=== PATIENT | female | born 1930 | race Caucasian/White ===

== ENCOUNTER 2016-09-14 08:52 | Observation (INO) | payer OTHER ==
[~2016-09-14] VITALS: Ht 157.5 cm; Wt 82.1 kg
--- NOTE | ~2016-09-14 | D ---
[facility] [place] [address] [place] [address] DISCHARGE SUMMARY Name: TAM DAVID Room #: 202-P [facility] Dianne Cali#: [id number] Admission: 09/14/16 Attend Phys: Kenneth Marks MD Discharge: 09/15/16 Date of : 32 Report #: [id number] THIS REPORT FOR: //name// CC: Vinita Marks DISCHARGE DIAGNOSES: 1. 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 PROCEDURES PERFORMED: Upgrade from a pacemaker to a Bi-V ICD. The patient is an 85-year-old female with a nonischemic cardiomyopathy, likely due to both chemotherapy-induced cardiomyopathy and due to chronic right ventricular pacing. She also has permanent atrial fibrillation. She was here for upgrade to a Bi-V ICD. The procedure went smoothly with a successful implantation of both leads. HOSPITAL COURSE: She was monitored overnight, received IV antibiotics, monitored on telemetry, everything was okay. She had a device interrogation that was within normal limits. A chest x-ray was performed and it will be finalized. She denies any chest pain, shortness of breath, PND, or orthopnea. Her physical exam was normal with normal cardiac exam, normal incision and no edema. As such, she was deemed stable for discharge home. She has a followup visit with me on 09/27/2016. She will continue her home medications and resume her warfarin today. <ELECTRONICALLY SIGNED> By: Kneneth Marks MD 09/18/16 0852 0907 1215 Kenneth Marks MD /nt
--- NOTE | ~2016-09-14 | P ---
[facility] [place] [address] [place] [address] PROCEDURE REPORT Name: TAM DAVID Room #: 202-P [facility] M.R.#: [id number] Admission: 09/14/16 Attend Phys: Kenneth Marks MD Discharge: 09/15/16 Date of : 32 Report #: [id number] THIS REPORT FOR: //name// CC: Vinita Marks PREOPERATIVE DIAGNOSIS: Nonischemic cardiomyopathy. POSTOPERATIVE DIAGNOSIS: Nonischemic cardiomyopathy. 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 As such, she is here for upgrade to Bi-V ICD from a dual chamber pacemaker. Her breast cancer has been an admission for years and she has a life expectancy of greater than 1 year. ANESTHESIA: The patient underwent MAC anesthesia with no anesthesia-related complications. DESCRIPTION OF PROCEDURE: The patient underwent informed consent. We discussed the details of the procedure including the risks, which include but not limited to bleeding, infection, vascular damage, cardiac perforation, pneumothorax. She understood these risks and is willing to proceed. As such, she was brought to the EP laboratory in a fasting and unsedated state and prepped and draped in a sterile fashion. She received IV Ancef prior to initiation of the procedure. Due to her prior pacemaker implantation, a formal venogram was performed to determine the patency of the left axillary vein. This showed that there was adequate flow. Next, I injected 15 mL of lidocaine at the prior incision site. An incision was made and the chronic pocket was opened. I then dissected out the leads and then performed a pocket revision to make room for the ICD. Next, I obtained access to the left axillary vein x 2. This was somewhat challenging, but eventually I was able to get my guidewires and I visualized this under fluoroscopy to be into the right atrium. Sheaths were positioned using the modified Seldinger technique. Next, a single coil ICD lead was placed into the right ventricular apex and it was deployed and there was no artifact from the prior pacemaker. In fact these leads appeared to be safe distance apart. This lead was sutured to the prepectoral fascia. Next, I placed a coronary sinus guide sheath into the right atrium and eventually got access to the coronary sinus. It had somewhat of a tortuous takeoff, but I was able to advance the sheath into the CS proper. Next, I performed a venogram of the coronary sinus and there was a nice large posterolateral branch. A quadripolar lead was easily delivered into this vessel and there were great pacing thresholds throughout. There was some mild phrenic nerve capture in some of the pacing configurations but the thresholds of the phrenic were much higher than the actual thresholds of RV capture. This sheath was split and the CS lead remained in place. I sutured [facility] [address] [place] [address] PROCEDURE REPORT Name: FRANKIETAM A Room #: 202-P LAINE Cali#: [id number] Admission: 09/14/16 Attend Phys: Kenneth Marks MD Discharge: 09/15/16 Date of : 32 Report #: [id number] the CS lead down. I then connected the atrial lead to the ICD in the LV and new RV lead to the ICD as well. The old pace sense lead was capped and placed in the pocket. The leads were tested and found to be functioning normally. Of note, the patient is in permanent atrial fibrillation. Next, I placed the leads and device in the pocket. The pocket was then irrigated with vancomycin solution and then the pocket was closed in 3 layers using 2-0 for the deep layer, 3-0 for the mid layer, 4-0 for the subcuticular layer and surgical glue was placed to the skin layer. The patient awoke neurologically and hemodynamically intact with no complications and no significant bleeding. The explanted pacemaker was a Medtronic model #Y1370RH, serial #[id number]. This was originally implanted on 12/16/2007. The preexisting leads were also implanted at that time. The new generator was a [employer] model # [id number], serial #[id number]. The chronic RA lead was a Medtronic lead, model #5076, [id number]. This lead was functioning normally, but as we are not using it I would not dictate the values. The chronic RV lead was a Medtronic model #5076, serial #[id number]. This lead was capped and placed in the pocket, had good R waves 19.4 millivolts, pacing impedance 628 ohms, pacing threshold is 0.5 volts at 0.5 milliseconds. This lead was functioning normally. The new ICD lead was a [employer] model #7122Q, 58 cm, serial #[id number]. This lead demonstrated an R-wave of 19.4 millivolts, pacing impedance of 628 ohms and a pacing threshold of 0.5 volts at 0.5 milliseconds. The LV lead was a [employer] model #1458Q, 86 cm, serial # [id number]. The LV lead was programmed in to the vector 4 mode, which is pacing from M2 to P4. The pacing impedance in this configuration was 640 ohms and the pacing threshold was 1 volt at 0.5 milliseconds. There was no phrenic nerve capture in this pacing configuration and this pacing vector was utilized as it had a nice basal pacing configuration and it resulted in narrowing of the QRS complex. The device was programmed to the VVIR 80-120 mode. The VT zone was set at 181 beats per minute with 3 rounds of bursts followed by 3 rounds of ramp followed by max output shocks. The VF zone was set at 222 beats per minute with ATP while charging followed by max output shocks. CONCLUSIONS: 1. Successful upgrade to a biventricular ICD. 2. Satisfactory right ventricular and left ventricular pacing thresholds. <ELECTRONICALLY SIGNED> By: Kenneth Marks MD 09/18/16 0852 1324 0103 Kenneth Marks MD /nt
[~2016-09-14 08:52] MED LIST: ACCUPRIL40 MG PO; AMLODIPINE BESYL5 MG PO; ASPIRIN EC81 M1 PO; ATENOLOL 50 MG50 M1 PO; COLESTID1 GM PO; CORTISPORIN CR7.5 G1 TOP; COUMADIN 2.5MG2.5 M1 PO; COUMADIN 5 MG TA5 M1 PO; DILTIAZEM 24HR240 M1 PO; HYDROCHLOROTHIA25 M2 PO; K-DUR 20 MEQ T20 MEQ PO; KLOR-CON PO; OMEPRAZOLE OR; PAROXETINE HCL10 MG PO; PREMARIN; PRILOSEC 20 MG20 MG PO; SOTALOL 120 MG120 MG PO; VITAMIN D-32000 UNIT PO
[2016-09-14] MEDS ORDERED: ROBITUSSIN100 MG/53 PO (09:17)
[2016-09-14] MEDS ORDERED: ALLERGY RELIEF180 MG PO (09:17)
[2016-09-14] MEDS ORDERED: AVAPRO300 MG PO (09:18)
[2016-09-14] MEDS ORDERED: IRON325 PO (09:18)
[2016-09-14] MEDS ORDERED: POTASSIUM20 PO (09:18)
[2016-09-14] MEDS ORDERED: CARVEDILOL25 MG PO (09:20)
[2016-09-14] MEDS ORDERED: XELODA500 MG PO (09:20)
[2016-09-14] MEDS ORDERED: LASIX 40 MG TAB40 M2 PO (09:21)
[2016-09-14] MEDS ORDERED: ZOFRAN ODT4 MG DISSOLVE (09:21)
[2016-09-14 09:29] VITALS: BP 123/56
[2016-09-14 09:37] LABS: ABSOLUTE NEUTROPHILS 5.8 thou/uL (1.4-8.2); BASOPHILS 0.5 % (0.0-2.0); EOSINOPHILS 1.7 % (0.0-3.0); HEMATOCRIT 37.5 % (37.0-47.0); HEMOGLOBIN 13.2 gm/dL (12.0-15.0); LYMPHOCYTES 11.4 % (24.0-44.0); MCH 40.1 pg (26.0-34.0); MCHC 35.1 g/dL (28.0-37.0); MCV 114.2 fL (80.0-100.0); PLATELET COUNT 139 thou/uL (150-400); POLYS 78.4 % (36.0-66.0); RBC 3.29 mil/uL (4.20-5.00); WBC 7.3 thou/uL (4.0-11.0)
[2016-09-14 09:38] LABS: MANUAL DIFF NO
[2016-09-14 09:49] LABS: APTT 24.5 Seconds (24.5-32.8); INR 1.3; PROTIME 13.4 Seconds (9.3-11.4)
[2016-09-14 09:53] LABS: CALCIUM 9.5 mg/dL (8.5-10.1); CREATININE 1.4 mg/dL (0.6-1.0); POTASSIUM 4.2 mmol/L (3.5-5.1)
[2016-09-14 09:57] LABS: ALBUMIN 3.7 g/dL (3.4-5.0); TOTAL BILIRUBIN 1.5 mg/dL (<0.1-1.0)
[2016-09-14 10:50] LABS: ANISOCYTOSIS 1+; MACROCYTES 2+; PLATELET ESTIMATE NORMAL
[2016-09-14 14:12] VITALS: BP 162/72
[2016-09-14 16:57] VITALS: BP 157/78
[2016-09-14 20:01] VITALS: BP 158/73
[2016-09-14 23:24] VITALS: BP 153/71
[2016-09-15 03:24] VITALS: BP 160/97
[2016-09-15 07:20] VITALS: BP 170/76
[2016-09-15 11:15] VITALS: BP 141/77
[2016-09-15 12:14] VITALS: BP 170/76
== END 2016-09-15 13:32 | disposition home or self-care (01) ==
LOC: CATH 08:52 → 2N 14:06
PROVIDERS: Internal Medicine Cardiovascular Disease
DX: I42.8 Other cardiomyopathies (principal); Z95.0 Presence of cardiac pacemaker; Z45.010 Encounter for checking and testing of cardiac pacemaker pulse generator [battery]

== ENCOUNTER 2017-11-12 17:24 | Inpatient (IN) | payer OTHER ==
[~2017-11-12] VITALS: Ht 157.5 cm; Wt 76.2 kg
--- NOTE | ~2017-11-12 | EKG ---
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: [facility] : 1930 Requested By: Rosalie Díaz Order Number: [id number] MD: Denny Chanel Measurements Intervals [place] Rate: 75 P: DC: QRS: 207 QRSD: 144 T: 53 QT: 460 QTc: 514 Interpretive Statements Afib/flutter and ventricular-paced rhythm No further analysis attempted due to paced rhythm Baseline wander in lead(s) V1 Compared to ECG 09/19/2012 08:41:40 Ventricular pacing is now present Electronically Signed On 11-13-2017 7:47:47 CDT by Denny Chanel [email or web address] <ELECTRONICALLY SIGNED> By: Denny Chanel MD, [facility] 11/13/17 0747 1826 1826 Denny Chanel MD, [facility] /EPI
[~2017-11-12 17:24] MED LIST changes: +ALLERGY RELIEF180 MG PO; +AVAPRO300 MG PO; +CARVEDILOL25 MG PO; +IRON325 PO; +LASIX 40 MG TAB40 M2 PO; +POTASSIUM20 PO; +ROBITUSSIN100 MG/53 PO; +XELODA500 MG PO; +ZOFRAN ODT4 MG DISSOLVE
[2017-11-12 17:43] VITALS: BP 150/79
[2017-11-12] MEDS ORDERED: HYDROCODONE-AP1 EAC6 PO (19:43)
[2017-11-12 20:59] LABS: HEMATOCRIT 38.8 % (37.0-47.0); HEMOGLOBIN 13.6 gm/dL (12.0-15.0); MCH 38.8 pg (26.0-34.0); MCV 110.9 fL (80.0-100.0); PLATELET COUNT 155 thou/uL (150-400); RDW 17.3 % (10.5-14.5); WBC 10.7 thou/uL (4.0-11.0)
[2017-11-12 21:07] LABS: ANION GAP 9 mmol/L (7-16); BUN 31 mg/dL (7-18); CALCIUM 9.1 mg/dL (8.5-10.1); CHLORIDE 103 mmol/L (98-107); CO2 28 mmol/L (21-32); CREATININE 1.5 mg/dL (0.6-1.0); GLUCOSE 128 mg/dL (74-106); POTASSIUM 3.9 mmol/L (3.5-5.1); SODIUM 140 mmol/L (136-145)
[2017-11-12 21:13] LABS: INR 2.6
[2017-11-12 21:15] LABS: ALBUMIN 3.5 g/dL (3.4-5.0); SGOT 45 U/L (15-37); SGPT 32 U/L (30-65); TROPONIN-I < 0.04 ng/mL (<0.06)
[2017-11-12 21:19] LABS: ABSOLUTE NEUTROPHILS 9.8 thou/uL (1.4-8.2)
[2017-11-12 21:20] LABS: ANISOCYTOSIS 1+; MACROCYTES 2+
[2017-11-12 22:20] VITALS: BP 153/72
[2017-11-12 22:50] VITALS: BP 151/67
[2017-11-12] MEDS ORDERED: XELODA500 MG PO (23:26)
[2017-11-12 23:40] VITALS: BP 153/86
[2017-11-13] MEDS ORDERED: DEMADEX20 MG PO (02:45)
[2017-11-13 04:00] VITALS: BP 142/73
[2017-11-13 07:01] VITALS: BP 143/75
[2017-11-13 09:47] LABS: BE(vivo) 1.1 mmol/L (-2 to +3); HCO3 26.5 mmol/L (22.0-26.0); PCO2 VENOUS 45.2 mmHg (41.0-51.0); PO2 VENOUS 25.5 mmHg (35.0-45.0)
[2017-11-13 15:32] VITALS: BP 121/67
[2017-11-13 19:31] VITALS: BP 122/70
[2017-11-13 20:31] VITALS: BP 130/67
[2017-11-14 07:05] VITALS: BP 124/65
[2017-11-14 07:28] LABS: CALCIUM 9.2 mg/dL (8.5-10.1); CREATININE 1.7 mg/dL (0.6-1.0); POTASSIUM 4.2 mmol/L (3.5-5.1)
[2017-11-14 07:34] LABS: INR 2.6; PROTIME 26.7 Seconds (9.3-11.4)
[2017-11-14 21:05] VITALS: BP 136/65
[2017-11-15 07:57] VITALS: BP 135/67
[2017-11-15 11:00] LABS: PROTIME 30.6 Seconds (9.3-11.4)
[2017-11-15 12:19] LABS: HEMATOCRIT 34.6 % (37.0-47.0); HEMOGLOBIN 12.1 gm/dL (12.0-15.0); MCH 39.1 pg (26.0-34.0); MCHC 34.9 g/dL (28.0-37.0); MCV 111.9 fL (80.0-100.0); RBC 3.09 mil/uL (4.20-5.00); RDW 17.1 % (10.5-14.5); WBC 11.7 thou/uL (4.0-11.0)
[2017-11-15 12:34] LABS: ALBUMIN 3.2 g/dL (3.4-5.0); CALCIUM 9.6 mg/dL (8.5-10.1); CREATININE 1.4 mg/dL (0.6-1.0); MAGNESIUM 1.8 mg/dL (1.8-2.4); POTASSIUM 3.8 mmol/L (3.5-5.1); TOTAL BILIRUBIN 1.3 mg/dL (<0.1-1.0); TOTAL PROTEIN 6.5 g/dL (6.4-8.2)
[2017-11-15 20:14] VITALS: BP 133/58
[2017-11-16 08:05] VITALS: BP 142/69
[2017-11-16] MEDS ORDERED: LIDOPATCH1 EACH TRANSDERM (12:00)
[2017-11-16] MEDS ORDERED: TYLENOL325 MG PO (12:00)
[2017-11-16 12:09] LABS: INR 2.7; PROTIME 27.4 Seconds (9.3-11.4)
[2017-11-16] MEDS ORDERED: VENTOLIN HFA 1818 GM INH (12:09)
[2017-11-16 12:43] VITALS: BP 142/69
== END 2017-11-16 15:35 | disposition home health service (06) | DRG 604 ==
LOC: ER 17:24 → 4N 21:01 → EROBS 21:01 → 4N 22:51 → SICU 11-13 17:31 → ENTRNSPT 11-16 15:22 → EDTRNSPTSTS 11-16 15:25 → SICU 11-16 15:35
PROVIDERS: Internal Medicine; Nurse Practitioner Acute Care; Nurse Practitioner Family
DX: S20.219A Contusion of unspecified front wall of thorax, initial encounter (principal); J96.01 Acute respiratory failure with hypoxia; N17.9 Acute kidney failure, unspecified; I42.8 Other cardiomyopathies; K21.9 Gastro-esophageal reflux disease without esophagitis; I50.9 Heart failure, unspecified; Z96.0 Presence of urogenital implants; I48.2 Chronic atrial fibrillation; Z60.2 Problems related to living alone; R19.7 Diarrhea, unspecified; G89.29 Other chronic pain; M54.9 Dorsalgia, unspecified; I11.0 Hypertensive heart disease with heart failure; T45.1X5A Adverse effect of antineoplastic and immunosuppressive drugs, initial encounter; I48.91 Unspecified atrial fibrillation; Z98.41 Cataract extraction status, right eye; Z95.0 Presence of cardiac pacemaker; Z98.42 Cataract extraction status, left eye; Z90.49 Acquired absence of other specified parts of digestive tract; Z90.710 Acquired absence of both cervix and uterus; Z90.11 Acquired absence of right breast and nipple; Z88.6 Allergy status to analgesic agent; Z88.1 Allergy status to other antibiotic agents; Z88.2 Allergy status to sulfonamides; Z79.82 Long term (current) use of aspirin; Z79.899 Other long term (current) drug therapy; V89.2XXA Person injured in unspecified motor-vehicle accident, traffic, initial encounter; Y93.89 Activity, other specified; Y92.89 Other specified places as the place of occurrence of the external cause; Y99.8 Other external cause status
CPT/HCPCS: 10790; 15002

== ENCOUNTER 2017-12-05 16:27 | Inpatient (IN) | payer OTHER ==
[~2017-12-05] VITALS: Ht 157.5 cm; Wt 76.7 kg
--- NOTE | ~2017-12-05 | EKG ---
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[place] : 1930 Requested By: Lio Rawls Order Number: [id number] MD: Denny Chanel Measurements Intervals [place] Rate: 87 P: HI: QRS: 40 QRSD: 95 T: 213 QT: 383 QTc: 461 Interpretive Statements Afib/flut and V-paced complexes No further rhythm analysis attempted due to paced rhythm Borderline repolarization abnormality Compared to ECG 11/12/2017 18:26:52 No significant changes Electronically Signed On 12-06-2017 7:56:03 CDT by Denny Chanel [email or web address] <ELECTRONICALLY SIGNED> By: Denny Chanel MD, [facility] 12/06/17 0756 1907 1907 Denny Chanel MD, [facility] /EPI
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
[~2017-12-05 16:27] MED LIST changes: +DEMADEX20 MG PO; +HYDROCODONE-AP1 EAC6 PO; +LIDOPATCH1 EACH TRANSDERM; +TYLENOL325 MG PO; +VENTOLIN HFA 1818 GM INH
[2017-12-05 16:28] VITALS: BP 165/66
[2017-12-05] MEDS ORDERED: XARELTO15 MG PO (16:31)
[2017-12-05] MEDS ORDERED: CYCLOBENZAPRINE5 MG PO (16:32)
[2017-12-05 16:56] LABS: ABSOLUTE NEUTROPHILS 5.7 thou/uL (1.4-8.2); BASOPHILS 0.4 % (0.0-2.0); EOSINOPHILS 2.3 % (0.0-3.0); HEMATOCRIT 33.8 % (37.0-47.0); LYMPHOCYTES 15.6 % (24.0-44.0); MCH 38.3 pg (26.0-34.0); MCHC 35.5 g/dL (28.0-37.0); MCV 107.8 fL (80.0-100.0); MONOCYTES 9.3 % (1.0-8.0); PLATELET COUNT 212 thou/uL (150-400); POLYS 72.4 % (36.0-66.0); RBC 3.14 mil/uL (4.20-5.00); WBC 7.8 thou/uL (4.0-11.0)
[2017-12-05 17:09] LABS: ANION GAP 5 mmol/L (7-16); BUN 29 mg/dL (7-18); CALCIUM 9.4 mg/dL (8.5-10.1); CHLORIDE 101 mmol/L (98-107); CO2 31 mmol/L (21-32); CREATININE 1.5 mg/dL (0.6-1.0); GLUCOSE 121 mg/dL (74-106); POTASSIUM 3.6 mmol/L (3.5-5.1); SODIUM 137 mmol/L (136-145)
[2017-12-05 17:14] LABS: ALBUMIN 3.6 g/dL (3.4-5.0); LIPASE 190 U/L (73-393); SGOT 27 U/L (15-37); SGPT 26 U/L (30-65); TOTAL BILIRUBIN 0.8 mg/dL (<0.1-1.0); TOTAL PROTEIN 7.3 g/dL (6.4-8.2); TROPONIN-I <0.06 ng/mL (<0.06)
[2017-12-05 17:16] LABS: ANISOCYTOSIS 2+; MACROCYTES 2+; POLYCHROMASIA OCCASIONAL
[2017-12-05 18:36] LABS: URINE BILIRUBIN NEGATIVE (Negative); URINE BLOOD NEGATIVE (Negative); URINE CLARITY CLEAR; URINE COLOR YELLOW; URINE GLUCOSE-RANDOM* NEGATIVE (Negative); URINE KETONES NEGATIVE (Negative); URINE NITRITE-REFLEX NEGATIVE (Negative); URINE PROTEIN (DIPSTICK) NEGATIVE (Negative); URINE SPECIFIC GRAVITY <= 1.005 (1.005-1.035); URINE UROBILINOGEN 0.2 E.U./dl (0.2-1.0)
[2017-12-05 18:37] LABS: URINE LEUKOCYTES-REFLEX TRACE (Negative)
[2017-12-05 21:21] VITALS: BP 115/56
[2017-12-06 05:37] VITALS: BP 127/50
[2017-12-06 05:45] LABS: ABSOLUTE NEUTROPHILS 6.7 thou/uL (1.4-8.2); BASOPHILS 0.2 % (0.0-2.0); HEMATOCRIT 32.3 % (37.0-47.0); HEMOGLOBIN 11.5 gm/dL (12.0-15.0); LYMPHOCYTES 12.5 % (24.0-44.0); MCHC 35.6 g/dL (28.0-37.0); MCV 109.5 fL (80.0-100.0); MONOCYTES 9.2 % (1.0-8.0); PLATELET COUNT 202 thou/uL (150-400); POLYS 76.1 % (36.0-66.0); RBC 2.95 mil/uL (4.20-5.00); RDW 14.8 % (10.5-14.5); WBC 8.7 thou/uL (4.0-11.0)
[2017-12-06 06:00] LABS: CALCIUM 8.9 mg/dL (8.5-10.1); CREATININE 1.4 mg/dL (0.6-1.0); MAGNESIUM 1.2 mg/dL (1.8-2.4); POTASSIUM 3.3 mmol/L (3.5-5.1)
[2017-12-06 06:31] LABS: TSH 3.588 uIU/mL (0.358-3.740)
[2017-12-06 07:40] VITALS: BP 115/50
[2017-12-07 07:15] VITALS: BP 146/65
[2017-12-07 11:01] LABS: BE(vivo) 0.1 mmol/L (-2 to +3); PCO2 36.8 mmHg (35.0-45.0); PO2 61.3 mmHg (80.0-100.0); pH 7.433 (7.360-7.450); sO2 92.3 % (92.0-98.0)
[2017-12-07 17:16] VITALS: BP 146/65
[2017-12-08 08:58] VITALS: BP 117/62
[2017-12-08 15:00] LABS: CREATININE 1.2 mg/dL (0.6-1.0); POTASSIUM 4.3 mmol/L (3.5-5.1)
[2017-12-08 20:00] VITALS: BP 146/70
[2017-12-09 07:30] VITALS: BP 100/58
[2017-12-09 10:14] LABS: ABSOLUTE NEUTROPHILS 6.5 thou/uL (1.4-8.2); BASOPHILS 0.5 % (0.0-2.0); EOSINOPHILS 1.9 % (0.0-3.0); HEMATOCRIT 29.4 % (37.0-47.0); HEMOGLOBIN 10.8 gm/dL (12.0-15.0); LYMPHOCYTES 12.7 % (24.0-44.0); MCH 39.6 pg (26.0-34.0); MCHC 36.6 g/dL (28.0-37.0); MCV 108.2 fL (80.0-100.0); MONOCYTES 11.9 % (1.0-8.0); PLATELET COUNT 133 thou/uL (150-400); RBC 2.72 mil/uL (4.20-5.00); RDW 16.3 % (10.5-14.5); WBC 8.9 thou/uL (4.0-11.0)
[2017-12-09 10:35] LABS: ANISOCYTOSIS 2+; MACROCYTES 2+; PLATELET ESTIMATE NORMAL
[2017-12-09 10:36] LABS: ALBUMIN 2.5 g/dL (3.4-5.0); CALCIUM 8.7 mg/dL (8.5-10.1); CREATININE 1.3 mg/dL (0.6-1.0); POTASSIUM 3.6 mmol/L (3.5-5.1); TOTAL BILIRUBIN 1.2 mg/dL (<0.1-1.0); TOTAL PROTEIN 5.8 g/dL (6.4-8.2)
[2017-12-09 20:00] VITALS: BP 130/62
[2017-12-10 08:00] VITALS: BP 116/59
[2017-12-10 20:25] VITALS: BP 104/53
[2017-12-11 07:08] LABS: EOSINOPHILS 1.5 % (0.0-3.0); HEMATOCRIT 30.7 % (37.0-47.0); HEMOGLOBIN 11.2 gm/dL (12.0-15.0); LYMPHOCYTES 13.3 % (24.0-44.0); MCHC 36.4 g/dL (28.0-37.0); MCV 107.1 fL (80.0-100.0); MONOCYTES 10.3 % (1.0-8.0); PLATELET COUNT 140 thou/uL (150-400); POLYS 73.9 % (36.0-66.0); RBC 2.86 mil/uL (4.20-5.00); RDW 15.5 % (10.5-14.5); WBC 9.5 thou/uL (4.0-11.0)
[2017-12-11 08:43] VITALS: BP 108/55
[2017-12-11 19:59] VITALS: BP 129/51
[2017-12-12 07:15] VITALS: BP 103/58
[2017-12-12 20:00] VITALS: BP 140/70
[2017-12-13 07:30] VITALS: BP 116/51
[2017-12-13] MEDS ORDERED: DILAUDID 2 MG TA2 MG PO (10:45)
[2017-12-13] MEDS ORDERED: DURAGESIC25 MCG/HR TRANSDERM (10:45)
[2017-12-13 11:15] VITALS: BP 115/58
[2017-12-13 11:16] VITALS: BP 115/58
[2017-12-13] MEDS ORDERED: LEVALBUTER0.63 MG/3 INH (11:27)
[2017-12-13] MEDS ORDERED: POTASSIUM20 PO (11:27)
[2017-12-13 12:48] LABS: ABSOLUTE NEUTROPHILS 8.3 thou/uL (1.4-8.2); BASOPHILS 1.4 % (0.0-2.0); EOSINOPHILS 1.6 % (0.0-3.0); HEMATOCRIT 33.3 % (37.0-47.0); HEMOGLOBIN 11.8 gm/dL (12.0-15.0); LYMPHOCYTES 8.6 % (24.0-44.0); MCH 37.8 pg (26.0-34.0); MCHC 35.6 g/dL (28.0-37.0); MCV 106.2 fL (80.0-100.0); MONOCYTES 10.7 % (1.0-8.0); PLATELET COUNT 171 thou/uL (150-400); POLYS 77.7 % (36.0-66.0); RBC 3.13 mil/uL (4.20-5.00); RDW 15.5 % (10.5-14.5); WBC 10.7 thou/uL (4.0-11.0)
[2017-12-13 12:56] LABS: CALCIUM 8.8 mg/dL (8.5-10.1); CREATININE 1.4 mg/dL (0.6-1.0); MAGNESIUM 1.5 mg/dL (1.8-2.4); POTASSIUM 3.9 mmol/L (3.5-5.1)
== END 2017-12-13 13:15 | DRG 542 ==
LOC: ER 16:27 → 4E 18:59 → EROBS 18:59 → 4E 23:30 → SICU 12-06 13:54
PROVIDERS: Emergency Medicine; Internal Medicine; Internal Medicine Geriatric Medicine; Internal Medicine Pulmonary Disease; Nurse Practitioner Family
DX: M84.58XA Pathological fracture in neoplastic disease, other specified site, initial encounter for fracture (principal); E43 Unspecified severe protein-calorie malnutrition; C79.51 Secondary malignant neoplasm of bone; I42.9 Cardiomyopathy, unspecified; C50.919 Malignant neoplasm of unspecified site of unspecified female breast; I48.91 Unspecified atrial fibrillation; K21.9 Gastro-esophageal reflux disease without esophagitis; I50.9 Heart failure, unspecified; I89.0 Lymphedema, not elsewhere classified; Z60.2 Problems related to living alone; K59.00 Constipation, unspecified; G89.29 Other chronic pain; M54.5 Low back pain; I11.0 Hypertensive heart disease with heart failure; Z98.42 Cataract extraction status, left eye; Z98.41 Cataract extraction status, right eye; Z95.0 Presence of cardiac pacemaker; Z90.49 Acquired absence of other specified parts of digestive tract; Z90.710 Acquired absence of both cervix and uterus; Z90.11 Acquired absence of right breast and nipple; Z88.6 Allergy status to analgesic agent; Z88.1 Allergy status to other antibiotic agents; Z88.2 Allergy status to sulfonamides; Z79.01 Long term (current) use of anticoagulants; Z68.30 Body mass index [BMI] 30.0-30.9, adult
CPT/HCPCS: 10084; 15002

== ENCOUNTER 2019-06-24 09:01 | Inpatient (IN) | payer OTHER ==
[~2019-06-24] VITALS: Ht 165.1 cm; Wt 57.9 kg
[2019-06-24] VITALS (17 sets, daily range): BP systolic 89–143; BP diastolic 44–77
[~2019-06-24 09:01] MED LIST changes: +CYCLOBENZAPRINE5 MG PO; +DILAUDID 2 MG TA2 MG PO; +DURAGESIC25 MCG/HR TRANSDERM; +LEVALBUTER0.63 MG/3 INH; +XARELTO15 MG PO
[2019-06-24 09:28] LABS: HCO3 24.3 mmol/L (22.0-26.0); PCO2 47.4 mmHg (35.0-45.0); PO2 76.5 mmHg (80.0-100.0); sO2 94.3 % (92.0-98.0)
[2019-06-24 09:29] LABS: pH 7.328 (7.360-7.450)
[2019-06-24] MEDS ORDERED: ANASTROZOLE1 MG PO (09:42)
[2019-06-24] MEDS ORDERED: IRBESARTAN150 MG PO (09:45)
[2019-06-24] MEDS ORDERED: EFFER-K 10 MEQ10 ME1 PO (09:46)
[2019-06-24 09:47] LABS: BASOPHILS 0.9 % (0.0-2.0); EOSINOPHILS 1.2 % (0.0-3.0); HEMATOCRIT 40.6 % (37.0-47.0); HEMOGLOBIN 13.2 gm/dL (12.0-15.0); LYMPHOCYTES 8.2 % (24.0-44.0); MCHC 32.4 g/dL (28.0-37.0); MCV 98.7 fL (80.0-100.0); MONOCYTES 5.6 % (1.0-8.0); PLATELET COUNT 217 thou/uL (150-400); POLYS 84.1 % (36.0-66.0); RBC 4.11 mil/uL (4.20-5.00); RDW 15.3 % (10.5-14.5); WBC 8.3 thou/uL (4.0-11.0)
[2019-06-24] MEDS ORDERED: DEMADEX20 MG PO (09:49)
[2019-06-24 09:55] LABS: ANION GAP 12 mmol/L (7-16); BUN 25 mg/dL (7-18); CALCIUM 9.8 mg/dL (8.5-10.1); CHLORIDE 103 mmol/L (98-107); CO2 25 mmol/L (21-32); CREATININE 1.6 mg/dL (0.6-1.0); GLUCOSE 202 mg/dL (74-106); POTASSIUM 4.5 mmol/L (3.5-5.1); SODIUM 140 mmol/L (136-145)
[2019-06-24 10:06] LABS: TROPONIN-I <0.06 ng/mL (<0.06)
--- NOTE | 2019-06-24 10:58 | NUR ---
ST [facility] CALLED THIS RN, PT STAYS IN AFIB ALL THE TIME, NO RUNS OF V-TACH/ V-FIB, PT IS CURRENTLY V-PACED.
--- NOTE | 2019-06-24 11:52 | 2DMMODE ---
[facility] [place] [address] 2 D/M-MODE ECHOCARDIOGRAM Name: TAM DAVID Room #: 170-12 ADM IN M.R.#: [id number] Admission: 06/24/19 Attend Phys: Nolan Castillo Discharge: Date of : 32 Report #: [id number] THIS REPORT FOR: //name// APPROVED REPORT Study performed: 06/24/2019 10:49:57 EXAM: Comprehensive 2D, Doppler, and color-flow Echocardiogram Patient Location: ER Status: routine BSA: 1.80 HR: 77 bpm BP: 131/66 mmHg Rhythm: Pacemaker Other Information Study Quality: Good/patient on BiPAP, flat on back. Indications Status post arrest. Hx: AICD, Afib, HTN, NISCM. 2D Dimensions RVDd: 35.84 mm IVSd: 9.51 (7-11mm) LVOT Diam: 19.06 (18-24mm) LVDd: 36.17 mm PWd: 9.93 (7-11mm) Ascending Ao: 31.57 (22-36mm) LVDs: 26.78 (25-40mm) Aortic Root: 36.97 mm Volumes Left Atrial Volume (Systole) Single Plane 4CH: 65.49 mL Single Plane 2CH: 69.95 mL LA ESV Index: 41.00 mL/m2 Aortic Valve AoV Peak Ronn.: 1.20 m/s AO Peak Gr.: 5.71 mmHg LVOT Max P.74 mmHg LVOT Max V: 0.83 m/s KATE Vmax: 1.98 cm2 AI Vmax: 4.51 m/s AI [facility]: 3.96 m/s2 AI PHT: 330.47 ms [facility] [place] [address] [place] [address] 2 D/M-MODE ECHOCARDIOGRAM Name: TAM DAVID Room #: [facility] ADM IN ..#: [id number] Admission: 06/24/19 Attend Phys: Nolan Castillo Discharge: Date of : 32 Report #: [id number] Mitral Valve MV Decel. Time: 152.17 ms MV E Max Ronn.: 1.01 m/s Pulmonary Valve PV Peak Ronn.: 0.71 m/s PV Peak Gr.: 2.01 mmHg Tricuspid Valve TR Peak Ronn.: 4.26 m/s RAP Estimate: 10.00 mmHg TR Peak Gr.: 73.00 mmHg PA Pressure: 83.00 mmHg Left Ventricle The left ventricle is normal size. There is normal LV segmental wall motion. There is normal left ventricular wall thickness. Left ventricular systolic function is normal. LVEF is 50-55%. This study is not technically sufficient to allow evaluation of the LV diastolic function. Right Ventricle The right ventricle is normal size. Right ventricle is mildly hypokinetic. Device lead is present in the right ventricle. Atria Left atrium is moderately dilated. Right atrium is moderately dilated. Aortic Valve The aortic valve is normal in structure. Leaflets are mildly calcified. Mild to moderate aortic regurgitation. There is no aortic valvular stenosis. Mitral Valve Mitral valve leaflets are mildly thickened. Mild to moderate mitral regurgitation. No evidence of mitral valve stenosis. Tricuspid Valve The tricuspid valve is normal in structure. Moderate tricuspid regurgitation. Estimated PAP is 70-75mmHg. Pulmonic Valve The pulmonary valve is normal in structure. Trace pulmonic regurgitation. Great Vessels [facility] [address] [place] [address] 2 D/M-MODE ECHOCARDIOGRAM Name: TAM DAVID Room #: 170-12 ADM IN M.R.#: [id number] Admission: 06/24/19 Attend Phys: Nolan Castillo Discharge: Date of : 32 Report #: [id number] The aortic root is normal in size. IVC is normal in size and collapses <50% with inspiration. Pericardium There is no pericardial effusion. Right pleural effusion noted. <Conclusion> The left ventricle is normal size. There is normal left ventricular wall thickness. Left ventricular systolic function is normal. The right ventricle is normal size. Device lead is present in the right ventricle. Left atrium is moderately dilated. Right atrium is moderately dilated. Mild to moderate aortic regurgitation. Mild to moderate mitral regurgitation. Moderate tricuspid regurgitation. Estimated PAP is 70-75mmHg. <ELECTRONICALLY SIGNED> By: Lambert Vega MD 06/24/19 1152 51 51 Lambert Vega MD /INF
[2019-06-24 13:09] LABS: URINE BILIRUBIN NEGATIVE (Negative); URINE BLOOD 2+ (Negative); URINE CLARITY CLEAR; URINE COLOR YELLOW; URINE GLUCOSE-RANDOM* NEGATIVE (Negative); URINE KETONES NEGATIVE (Negative); URINE LEUKOCYTES-REFLEX NEGATIVE (Negative); URINE NITRITE-REFLEX NEGATIVE (Negative); URINE PROTEIN (DIPSTICK) 2+ (Negative); URINE SPECIFIC GRAVITY >= 1.030 (1.005-1.035)
[2019-06-24 13:11] LABS: CHOLESTEROL 182 mg/dL (<200); HDL CHOLESTEROL 38 mg/dL (>40); LDL CHOLESTEROL 125 mg/dL (<100); TC:HDL 4.8 Ratio (Not establshd); TRIGLYCERIDE 96 mg/dL (<150); VLDL 19 mg/dL (<40)
[2019-06-24 13:26] LABS: SQUAMOUS 4-10 Moderate /LPF (0-3)
[2019-06-24 13:27] LABS: AMORPHOUS URATES Moderate /LPF (None Seen); HYALINE CASTS 4-10 Moderate /LPF (None Seen); URINE RBC 3-10 Few /HPF (0-2)
[2019-06-24 13:28] LABS: BACTERIA-REFLEX 1-9 Few /HPF (None Seen); RENAL EPITHELIAL CELLS 0-3 Few /LPF (None Seen); TRANSITIONAL EPITHEL CELL 0-3 Few /LPF (None Seen); URINE WBC-REFLEX 0-5 Rare /HPF (0-5)
[2019-06-24 13:39] LABS: FOLIC ACID 13.5 ng/mL (8.6-58.9); TSH 5.502 uIU/mL (0.358-3.740)
--- NOTE | 2019-06-24 15:30 | NUR ---
1315-RECEIVED PT FROM E.R. VIA STRETCHER. ON 100% NRB MASK,PLACED ON BIPAP p ARRIVAL.--VW C/O SEVERE PAIN EARLIER,CHEST & RIBS-I CAN'T STAND IT.LONG D/W PT RE:POC.SHE STATES SHE DOES NOT WANT ANY CHEST COMPRESSIONS,DOES NOT WANT TO HAVE ANY LIFE SUPPORT.IS ON 100% BIPAP, DOESN'T LIKE WEARING IT BUT FEELS BETTER W IT ON.PT MADE DNR IN E.R. PRIOR TO COMING TO ICU.BANDED. 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 DTR & DTR IN LAW AT BEDSIDE.UPDATED ON POC,ICU VISITIING.SUPPORT GIVEN.--VW
[2019-06-24 23:06] LABS: GLYCOHEMOGLOBIN (HGB A1C) 5.9 % (4.8-5.6)
[2019-06-25] VITALS (21 sets, daily range): BP systolic 110–166; BP diastolic 50–93
[2019-06-25 05:43] LABS: BASOPHILS 0.2 % (0.0-2.0); HEMATOCRIT 38.6 % (37.0-47.0); HEMOGLOBIN 12.5 gm/dL (12.0-15.0); LYMPHOCYTES 5.1 % (24.0-44.0); MCH 31.9 pg (26.0-34.0); MCHC 32.4 g/dL (28.0-37.0); MCV 98.6 fL (80.0-100.0); MONOCYTES 1.3 % (1.0-8.0); PLATELET COUNT 149 thou/uL (150-400); POLYS 93.4 % (36.0-66.0); RBC 3.92 mil/uL (4.20-5.00); RDW 15.5 % (10.5-14.5); WBC 6.4 thou/uL (4.0-11.0)
[2019-06-25 06:09] LABS: ALBUMIN 2.9 g/dL (3.4-5.0); ANION GAP 13 mmol/L (7-16); BUN 30 mg/dL (7-18); CALCIUM 8.7 mg/dL (8.5-10.1); CHLORIDE 105 mmol/L (98-107); CO2 26 mmol/L (21-32); CREATININE 1.7 mg/dL (0.6-1.0); GLUCOSE 127 mg/dL (74-106); POTASSIUM 4.5 mmol/L (3.5-5.1); SGOT 55 U/L (15-37); SGPT 62 U/L (30-65); SODIUM 144 mmol/L (136-145); TOTAL BILIRUBIN 1.3 mg/dL (<0.1-1.0); TOTAL PROTEIN 6.6 g/dL (6.4-8.2); TROPONIN-I <0.06 ng/mL (<0.06)
--- NOTE | 2019-06-25 06:32 | NUR ---
Assumed patient care at 1900. Patient resting in bed with BiPaP on at 50% oxygen. Patient awakens easily to verbal stimuli and is oriented to self and place. No acute events occurred during this shift and VS remained stable. Patient is progressing towards goal.
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
--- NOTE | 2019-06-25 17:50 | NUR ---
ASSUMED PT CARE AT 0700. VSS. PT A&0X4. PT PROGRESSED FROM BIPAP TO 3L HGHFLOW NC. TOLERATED THIS WELL. SATTING IN THE 90s. SHE AVERAGED ABOUT 75-100ML PER HOUR IN URINE OUTPUT. PT IS STABLE, HAD A SWALLOW EVAL TODAY TOLERATED WELL(SWALLLOW PRECAUTION ORDERS IN) FAMILY IN ROOM. NO COMPLAINTS OF DISTRESS, STATES SHE FEELS A LOT BETTER. NEW TRANSFER ORDERS TO [facility], NO BEDS AVAILABLE YET. PT REMAINS IN ICU ROOM. ASSESSMENTS AND MEDSGIVEN ARE CHARTED. WILL CONTINUE TO MONITOR PER POC.
[2019-06-26] VITALS (15 sets, daily range): BP systolic 121–174; BP diastolic 62–91
--- NOTE | 2019-06-26 07:43 | NUR ---
Received report from offgoing RN (Dayanna/Jailyn) and assumed patient care at 1900. Patient is AAOx4, and noted to be on 4 L high flow NC and O2 sats around 93-94%. Patient complained of sternal pain once and Dilaudid was given. No further complaints of pain. Patient slept well without any acute events occurring. VS remained stable. Patient is waiting for a bed as she has CC Tele transfer orders.
--- NOTE | 2019-06-26 08:20 | HC ---
[facility] [place] [address] [place] [address] CONSULTATION Name: TAM DAVID Room #: 244-P ADM IN M.R.#: [id number] Admission: 06/24/19 Attend Phys: Ruth Duong MD Discharge: Date of : 32 Report #: [id number] THIS REPORT FOR: //name// CC: RUTH WADE REASON FOR CONSULTATION: History of stage 4 breast cancer. HISTORY OF PRESENT ILLNESS: The patient is a very pleasant 88-year-old patient of [employer] who has a history of stage 4 breast cancer that testing islas is thought to be ER/WA negative, HER-2 positive. She developed heart failure and has been on Arimidex for about 2 years without definite evidence of progressive bony disease. She has about a 3-month history of feeling more pooped and tired and then yesterday, did not feel well, was brought to the ER and maybe had respiratory failure. Here is not clear whether she has an infection or heart failure. She has been on diuretics and also antibiotic, and is much improved today. We talked to the patient and her children that as best we can tell, the measurable spots in her bones looked stable. There is a slightly larger pleural effusion, bilateral, but more on the right side now that may be related to heart failure, but we will need to follow. At this time, I would continue her Arimidex. The patient denies recent fevers or chills. Did have some slight shortness of air, may be a little bit ankle swelling. No new diarrhea or constipation or blood in her urine or stool. PAST MEDICAL HISTORY: Notable for the history of breast cancer originally diagnosed in 11/2009 with a right mastectomy, 3 nodes involved, ER/WA negative, HER-2 positive. Had adjuvant Taxotere and Cytoxan, Herceptin for 2 cycles, then the cytotoxic chemo was held because of nausea, vomiting and diarrhea. She completed Herceptin in 01/2011. She had recurrent disease in February 2014. The tumor was again ER/WA negative, HER-2 positive. The patient began Herceptin and Perjeta after radiation therapy. That was held later on due to progressive cardiac dysfunction. She was on Xeloda from about 06/2015 until about 01/2018. She had some slowly progressive disease when she changed to Arimidex. Note that her tumor is not known to be ER/WA positive, but with bone dominant disease and the intolerance of chemotherapy, we chose Arimidex and she has been mostly stable with perhaps some very slight growth of spots in her lungs, but not sure those are cancer. She also has a history of cardiac difficulties with a [facility] [address] [place] [address] CONSULTATION Name: TAM DAVID Room #: 244-P ADM IN M.R.#: [id number] Admission: 06/24/19 Attend Phys: Ruth Duong MD Discharge: Date of : 32 Report #: [id number] pacemaker defibrillator in place. She also has a history of anemia. The cardiomyopathy that may be related to her chemotherapy with an EF of around 35% in the past, also some chronic respiratory failure, followed by Dr. Kaur, also history of hyperlipidemia, dyslipidemia, reflux and lymphedema, permanent atrial fibrillation. FAMILY HISTORY: Noncontributory. SOCIAL HISTORY: Unchanged. MEDICATIONS: At this time, currently include colestipol 1 gram daily, anastrozole 1 mg daily, lidocaine patch daily, iron sulfate 325 daily, aspirin 81 mg daily, pantoprazole 40 daily, furosemide currently 40 b.i.d. IV, vancomycin 500 mg q.12, Lovenox 30 at bedtime, methylprednisolone 62.5 IV b.i.d., budesonide respiratory therapy b.i.d., Zosyn 3.375 IV q. 8, carvedilol 25 b.i.d., sliding scale insulin, albuterol, ipratropium, respiratory therapy, hydromorphone p.r.n. electrolytes p.r.n., MiraLax p.r.n., Zofran p.r.n. PHYSICAL EXAMINATION: GENERAL: The patient appears her stated age. She is alert and oriented in ICU bed. VITAL SIGNS: Current height is 5 feet 5 inches, 165.1 cm, weight 156 pounds, 70.8 kilograms. Blood pressure is 166/80, O2 sat 96%, respirations 17, pulse 75, afebrile at 97.6. MOOD: Alert and pleasant and recognized me. NEUROLOGIC: Speech and thought pattern normal. Moving extremities. LUNGS: Dull in the bases. Have some slight rhonchi that clear with cough. HEART: Regular rate. May have a murmur. LYMPHATICS: No enlarged lymph nodes in the supraclavicular, cervical, axillary or inguinal region. ABDOMEN: Slightly obese. EXTREMITIES: Without clubbing, cyanosis. There may be some trace edema. LABORATORY DATA: Notable for a BUN of 30 and a creatinine of 1.7. AST 55, total bilirubin 1.3, SGPT 62. Albumin 2.9 after hydration. White count 6.4, hemoglobin 12.5, platelets 149. Differential has slight increase in neutrophils. Folate 13.5. B12 802. Hemoglobin A1c 5.9. ASSESSMENT AND PLAN: 1. Metastatic breast cancer. No definite progression. Continue anastrozole. 2. General decline, expressed concern and talked with the patient's family including, I believe, with the son and daughter, but her overall decline in the likelihood that she may not be able to go home directly from the hospital as she has in the past. We will see how she recovers. 3. Respiratory failure, unclear how much of this is heart failure versus infection versus malignancy, but it is improved today. Talking with Dr. Kaur, [facility] [address] [place] [address] CONSULTATION Name: TAM DAVID Room #: 244-P ADM IN M.R.#: [id number] Admission: 06/24/19 Attend Phys: Ruth Duong MD Discharge: Date of : 32 Report #: [id number] we will not plan on thoracentesis at this time, but may if her breathing stalls out on improvement. 4. Heart failure. Defer meds to others. 5. As far as possible pneumonitis, continue antibiotics. 6. Diabetes. Sliding scale insulin if needed. 7. We will follow with you. <ELECTRONICALLY SIGNED> By: Juan F Jorge MD 06/26/19 0820 1114 27 Juan F Jorge MD /nt
[2019-06-26 10:58] LABS: CALCIUM 9.7 mg/dL (8.5-10.1); CREATININE 1.8 mg/dL (0.6-1.0); POTASSIUM 3.4 mmol/L (3.5-5.1)
--- NOTE | 2019-06-26 12:23 | NUR ---
Received call from RN, family/pt with questions on pts diet restrictions. Admit following cardiac arrest. Hx stage IV metastatic cancer. States appetite fair to good and no significant wt changes. ST has assessed and recommended modified diet for dysphagia. Pt wanting foods not allowed on heart healthy restriction, Given permission from physician to liberalize diet order. ST relates pt should be on thickened liquids but refuses these and at this point given medical status, allowed to liberalize that restriction as well. Pt and family pleased with diet order change. Low nutrition risk
--- NOTE | 2019-06-26 14:38 | NUR ---
FAXED REFERRAL TO [facility] SPOKE WITH ALANA IN INTAKE SHE RECEIVED REFERRAL AND CAN ACCEPT. FAXED REFERRAL TO [facility] SPOKE WITH ARTURO SHE RECEIVED REFERRAL AND WILL REVIEW,. FAXED REFERRAL TO [facility] WITH CRYSTAL IN ADM SHE RECEIVED REFERRAL AND WILL REVIEW. DP TO FOLLOW.
--- NOTE | 2019-06-26 15:32 | NUR ---
pt progressing today. discomfort in mid chest with palpation, splints chest, intrinsic ventricular rhythm, vpaced-75, titrated down to 4L/nc, vera with adequate urine output. in am, lab unable to obtain bloodwork. pt verbalized she wondered why we weren't using the port. port accessed by dev Mayorga rn and blood obtained. pt worked with PT and OT. pt up to chair and bathed self. report given to CAROLINA Fairbanks when CC Tele Rm #[id number] became available. pt transferred per wheelchair. family at bedside all day and accompanied pt to room.
--- NOTE | 2019-06-26 16:01 | NUR ---
REC PT APPROX 1540, ACCOMPANIED BY FAMILY. PT IN GOOD SPIRITS, ADAMANT ABOUT AQUINO WELL NO LAB DRAWS SHE'S CONSIDERED A DIFFICULT STICK AND SHE'S UPSET ABOUT SOMETHING THAT HAPPENED THIS A.M. W/LAB. HAS PORT ON RIGHT CHEST, AICD UNDER SKIN ON LEFT. FAMILY AT BEDSIDE, PT ENCOURAGED TO USE CALL LIGHT FOR ANY NEEDS. TELE MONITORED. SEE SEPARATE INTERVENTIONS FOR ASSESSMEMNTS. NORMALLY USES A POISE/DIAPER PER PT.HAS TWO IV ON LUE.
--- NOTE | 2019-06-26 17:06 | EKG ---
[address] [place] [address] ELECTROCARDIOGRAM REPORT Name: TAM DAVID Room #: 213-P ADM IN M.R.#: [id number] Admission: 06/24/19 Attend Phys: Ruth Duong MD Discharge: Date of : 32 Report #: [id number] THIS REPORT FOR: //name// ED Test Date: 2019-06-24 Test Time: 09:06:54 Pat Name: TAM DAVID Department: Room: 213 Gender: F Whale Fisherman: RAULITO : 1930 Requested By: Elbert Orlando Order Number: [id number] MD: eKnneth Marks Measurements Intervals Heber Rate: 75 P: NE: QRS: 208 QRSD: 146 T: 20 QT: 435 QTc: 486 Interpretive Statements Afib/flutter and ventricular-paced rhythm No further analysis attempted due to paced rhythm Compared to ECG 12/05/2017 19:07:12 No significant changes Electronically Signed On 06-26-2019 17:06:10 TEAM MANAGER by Kenneth Marks [email or web address] <ELECTRONICALLY SIGNED> By: Kenneth Marks MD 06/26/19 1706 0906 [id number] Kenneth Marks MD /DARRION
[2019-06-27 03:35] VITALS: BP 149/70
[2019-06-27 05:11] LABS: CALCIUM 9.4 mg/dL (8.5-10.1); CREATININE 1.9 mg/dL (0.6-1.0)
--- NOTE | 2019-06-27 05:31 | NUR ---
ASSESSMENT DOCUMENTED.PT BEEN RESTING IN NO ACUTE DISTRESS.A/OX4.VSS.V-PACED ON MONITOR.IB ANTIBIOTICS INFUSED PER ORDERS.PT DENIES ANY CONCERNS AT THIS TIME.WILL CONT TO MONITOR PER POC.
[2019-06-27 08:00] VITALS: BP 149/71
--- NOTE | 2019-06-27 09:42 | NUR ---
NO OON coverage benefits for post acute care at [facility]. [facility] accepting for dc once stable.
[2019-06-27 12:00] VITALS: BP 147/80
--- NOTE | 2019-06-27 13:56 | NUR ---
OT IN TO WORK WITH PT, AFTER PT STOOD FOR A MINUTE SHE VERBALIZED, "I MUST LIE DOWN. I DON'T FEEL GOOD." OT ASKED PT IF SHE COULD WALK TO CHAIR AND REST THERE. PT REFUSED. WAS HELPED BACK INTO BED BY OT AND MYSELF, AFTER ABOUT 10 MINUTES SHE FELT BETTER AND WAS PULLED UP INTO BED AND IS EATING LUNCH.
[2019-06-27 16:00] VITALS: BP 165/89
[2019-06-27 20:45] VITALS: BP 169/77
--- NOTE | 2019-06-28 01:35 | NUR ---
ASSESSMENTS CHARTED, MEDS GIVEN CHARTED. V PACED ON MONITOR. ON 3 LITERS NC. UP TO BSC WITH ASSIST. LIDOCAINE PATCH REMOVED DURING EVENING. RECEIVED 3 UNITS OF INSULIN FOR A BLOOD SUGAR OF 174. FALL PRECAUTIONS IN PLACE. DENIED PAIN DURING SHIFT.
[2019-06-28 03:14] LABS: CALCIUM 8.8 mg/dL (8.5-10.1); CREATININE 1.8 mg/dL (0.6-1.0)
[2019-06-28 04:35] VITALS: BP 178/92
[2019-06-28 08:10] VITALS: BP 181/76
--- NOTE | 2019-06-28 11:50 | NUR ---
Received awake on bed. Due medications given as prescribed, able to swallow meds w/ apple sauce. A+Ox4. On O2 at 3lpm via nasal cannula. Assisted in ADLs. With pacemaker- on heart monitoring; no complaints of chest pain, heaviness and crushing sensation felt. On blood sugar monitoring- taken and recorded accordingly, with sliding scale insulin prescribed. Able to use bedside commode with gait belt and moderate assist. On mechanically altered ground diet; tolerating well, no nausea, no vomiting and no abdominal pain noted; assisted in eating and drinking. Able to have a bowel movement today- charted. With port at R chest- intact. With peripheral IV at L FA- intact, flushing well, on IV antibiotics. On R arm limb alert noted. Falls bundle in place. Pt seen by Dr Trinh today, update given. Pt visited by her daughter today.
[2019-06-28 11:51] VITALS: BP 158/63
[2019-06-28 18:09] VITALS: BP 180/81
[2019-06-28 20:00] VITALS: BP 166/83
[2019-06-29 03:49] LABS: ABSOLUTE NEUTROPHILS 7.4 thou/uL (1.4-8.2); BASOPHILS 0.1 % (0.0-2.0); HEMATOCRIT 38.2 % (37.0-47.0); HEMOGLOBIN 12.3 gm/dL (12.0-15.0); LYMPHOCYTES 3.1 % (24.0-44.0); MCH 31.4 pg (26.0-34.0); MCHC 32.3 g/dL (28.0-37.0); MCV 97.5 fL (80.0-100.0); MONOCYTES 4.5 % (1.0-8.0); PLATELET COUNT 133 thou/uL (150-400); POLYS 92.3 % (36.0-66.0); RBC 3.92 mil/uL (4.20-5.00); RDW 15.4 % (10.5-14.5); WBC 8.1 thou/uL (4.0-11.0)
[2019-06-29 04:01] LABS: ALBUMIN 2.8 g/dL (3.4-5.0); CALCIUM 9.1 mg/dL (8.5-10.1); POTASSIUM 3.2 mmol/L (3.5-5.1); TOTAL BILIRUBIN 0.9 mg/dL (<0.1-1.0); TOTAL PROTEIN 6.6 g/dL (6.4-8.2)
[2019-06-29 04:25] VITALS: BP 178/90
--- NOTE | 2019-06-29 04:37 | NUR ---
ASSESSMENTS CHARTED, MEDS GIVEN CHARTED. PATIENT MOVED FROM SITTING MOST OF THE DAY IN THE CHAIR TO THE BED AT START OF SHIFT. UP WITH ASSIST TO BSC. HAD BOWEL MOVEMENT. VPACED WITH BBB HEART RATE IN THE 70'S DURING SHIFT. ON 3 LITERS NC DURING SHIFT. PATIENT DENIED PAIN. HAD SOME TIGHTNESS ACROSS CHEST FROM SCAR TISSUE. TYLENOL GIVEN ONCE. PATIENT SWALLOWS PILLS IN APPLESAUCE. FALL PRECAUTIONS IN PLACE DUE TO RECENT FALL AT HOME. PLAN OF CARE INCLUDES NEW CHEST XRAY TODAY.
[2019-06-29 05:50] LABS: BE(vivo) 4.4 mmol/L (-2 to +3); HCO3 29.6 mmol/L (22.0-26.0); PCO2 46.1 mmHg (35.0-45.0); PO2 71.9 mmHg (80.0-100.0); pH 7.425 (7.360-7.450); sO2 94.7 % (92.0-98.0)
[2019-06-29 07:30] VITALS: BP 190/102
--- NOTE | 2019-06-29 07:57 | NUR ---
ASSUMED CARE OF PT APPROX 0715, A&0X4, SLIGHTLY CONFEDERATED SALISH, INFREQ CAN BE FORGETFUL, HAS MANY VISIORS DURING DAY, ENCOURAGED HER TO REST AND NOT FEEL SHE NEEDS TO ENTERTAIN. IN GOOD SPIRITS THIS A.M. HIGH BP REPORTED AT 0740, GAVE COREG EARLY. B/PS HIGH HER NORM KEELEY IN A.M. SEE SEPARATE INTERVENTIONS FOR ASSESSMENTS, CARDIAC MONITORED, WEARS 3L 02 AT 96%, WEARS 02 AT HOME CHRONIC. ENCOURAGED HER TO USE CALL LIGHT FOR ANY NEEDS
[2019-06-29 11:30] VITALS: BP 155/81
[2019-06-29 16:06] VITALS: BP 167/83
[2019-06-29 19:30] VITALS: BP 165/82
--- NOTE | 2019-06-30 03:14 | NUR ---
ASSUMED CARE FROM DAY SHIFT PT RESTING IN BED , DISCUSSED PLAN OF CARE AND VERBALIZED UNDERSTANDING AND AGREEABLE. DENIES PAIN OR SOA, TOLERATING WHEN UP TO BSC. MIDDLE [employer]CHOOL ART TEACHER SHOWS A PACED. LUNG SOUND CLEAR DECREASED IN BASES.RESTING WELL THROUGHOUT HOURLY ROUNDS WILL REPORT CHANGES OR ABNORMAL FINDINGS., WILL CONITNUE WITH CURRENT PLAN OF CARE AND WILL REPORT CHANGES.
[2019-06-30 03:15] VITALS: BP 187/99
--- NOTE | 2019-06-30 03:25 | NUR ---
ASSUMED CARE FROM DAY SHIFT OF NAUSEA ZOFRAN REQUESTED AND GIVEN,IV FLUIDS AND IV ABX GIVEN PRESCRIBED. PT UP TO BATHROOM NO STOOL NOTED DENIES PAIN, PRESTED WELL THROUGHOUT HOURLY ROUNDS, CARPENTER SUPERVISOR WOODEN SHIP SHOWS NSR. WILL REPORT CHANGES OR ABNORMAL FINDNGS.
[2019-06-30 07:45] VITALS: BP 188/107; BP 189/105
[2019-06-30 12:00] VITALS: BP 151/78
[2019-06-30 12:00] LABS: CALCIUM 9.4 mg/dL (8.5-10.1); CREATININE 2.2 mg/dL (0.6-1.0); POTASSIUM 3.3 mmol/L (3.5-5.1)
--- NOTE | 2019-06-30 14:40 | NUR ---
Spoke with patient regarding dc planning. Discussed post acute care. patient agreeable she needs rehab. She reports Dr Guillen told her the best rehab is here in hospital and she needs to consider 5N. 5N consult for eval. Gave patient [facility] list to review. She reports she will never consider [facility] reorts of [place] again, she reports not a good stay.
[2019-06-30 16:00] VITALS: BP 138/69
[2019-06-30 19:23] VITALS: BP 126/55
[2019-07-01 03:43] VITALS: BP 156/84
--- NOTE | 2019-07-01 04:32 | NUR ---
ASSUMED PT CARE AT 1900, PT IS ALERT AND ORIENTEDX4, V PACED ON THE MONITOR, NO COMPLAINS OF PAIN OR SOB, RESTED WELL THROUGH THE NIGHT, WILL CONTINUE TO MONITOR
[2019-07-01 05:15] LABS: CALCIUM 9.1 mg/dL (8.5-10.1); CREATININE 1.8 mg/dL (0.6-1.0); POTASSIUM 3.4 mmol/L (3.5-5.1)
[2019-07-01 08:00] VITALS: BP 157/76
[2019-07-01] MEDS ORDERED: PULMICORT0.5 MG/21 INH (11:27)
[2019-07-01] MEDS ORDERED: NORVASC5 MG PO (11:27)
[2019-07-01] MEDS ORDERED: AUGMENTIN 500-1 EACH PO (11:27)
[2019-07-01] MEDS ORDERED: PREDNISONE 20 M20 M1 PO (11:27)
--- NOTE | 2019-07-01 11:40 | NUR ---
patient accepted to 5N they are in process of auth with insurance.
[2019-07-01 12:25] VITALS: BP 142/71
--- NOTE | 2019-07-01 15:46 | NUR ---
PATIENT SEEN BY ARA FELTON NP WITH DR. DE GUZMAN. PATIENT WOULD LIKE TO COME TO 5N AND HAS DEFICITS. AUTHORIZATION REQUEST SUBMITTED TO PATIENT'S INSURANCE. WILL AWAIT RESPONSE. REHAB BEDS ARE LIMITED AT THIS TIME. POSSIBILITY THAT NEXT OPEN BED MAY BE 07-03 OR 07-04-19. ASSOCIATE CHIEF NURSE UPDATED.
[2019-07-01 16:35] VITALS: BP 128/60
--- NOTE | 2019-07-01 19:33 | NUR ---
RECEIVED PT'S CARE AROUND 0726; PT. ON CHAIR; AOX4; DURING ASSESSMENT NO C/O PAIN; AM MEDICATION GIVEN; VPACED; EDUCATED ABOUT FALL PRECAUTIONS; ST. UNDERSTANDING; OK TO BE ADMITTED IN 5N; WAITING FOR HEALTH INSURANCE APPROVAL; NO BEDS AVAILABLE; ASSESSMENT CHARGED; FOLLOWING POC; PASSED ON REPORT;
[2019-07-01 20:16] VITALS: BP 137/63
[2019-07-02 03:42] VITALS: BP 153/82
--- NOTE | 2019-07-02 04:42 | NUR ---
PATIENT ALERT AND ORIENTED X4, NO COMPLAINTS OF PAIN. PACED ON PISTON MAKER. ON 3L NASAL CANNULA, SHORTNESS OF BREATH WITH INCREASED ACTIVITY. PATIENT TRANSFERRES TO BEDSIDE COMMODE WITH X1 ASSISTANCE. BLOOD SUGAR MONITORED. PATIENT RESTED THROGUTH THE NIGHT. NO SIGN OF ACUTE DISTRESS NOTED AT THIS TIME. WILL CONTINUE TO MONITOR.
[2019-07-02 06:12] LABS: ALBUMIN 2.7 g/dL (3.4-5.0); CALCIUM 9.3 mg/dL (8.5-10.1); CREATININE 1.6 mg/dL (0.6-1.0); PHOSPHORUS 3.4 mg/dL (2.5-4.9)
[2019-07-02 07:30] VITALS: BP 158/75
--- NOTE | 2019-07-02 08:59 | HC ---
[facility] [place] [address] [place] [address] CONSULTATION Name: TAM DAVID Room #: 213-P ADM IN M.R.#: [id number] Admission: 06/24/19 Attend Phys: Ruth Duong MD Discharge: Date of : 32 Report #: [id number] THIS REPORT FOR: //name// CC: Felicity Huitron REASON FOR CONSULTATION: Elevated creatinine. REASON FOR PRESENTATION: Found down. HISTORY OF PRESENT ILLNESS: An 88-year-old with past medical history of hypertension, breast cancer and lung cancer. Status post ICD. She also has issues with hypertension and hyperlipidemia. It looks like that the patient was found, slumped on the floor with no pulse. EMS was called and the patient was unresponsive when they arrived; however, it does look like that the patient regained consciousness and pulse. The patient has significant cardiac issues with what seems to be severe pulmonary hypertension. She also had major issues with hypertension that has been persistently on the high side. She is followed by Dr. Guillen from the cardiac team. Creatinine on presentation was in the 1.6 range and has risen to 2.2; however, seems to be trending down toward baseline at 1.8 as of this morning. I am being consulted to manage her chronic kidney disease. She was never told that she had kidney problems in the past. She is not aware of any personal or family history of nephrolithiasis, cystic kidney disease, connective tissue disorder and glomerulonephritis. PAST MEDICAL HISTORY: 1. Breast cancer. 2. Hypertension. 3. Post pacemaker. 4. Severe pulmonary hypertension. 5. Hyperlipidemia. 6. AFib. 7. Tonsillectomy. 8. Cataract surgery. 9. Hysterectomy. 10. Appendectomy. 11. Bony metastasis. SOCIAL HISTORY: No smoking. No alcohol abuse. REVIEW OF SYSTEMS: GENERAL: Significant for weakness. CARDIOVASCULAR: No chest pain or palpitation. PULMONARY: Shortness of breath at baseline. GASTROINTESTINAL: No nausea or vomiting. GENITOURINARY: No frequency, no urgency. [facility] [address] [place] [address] CONSULTATION Name: TAM DAVID Room #: [address] [place] [address] IN M.R.#: [id number] Admission: 06/24/19 Attend Phys: Ruth Duong MD Discharge: Date of : 32 Report #: [id number] NEUROLOGICAL: As per the history of present illness. MEDICATIONS: Currently, the patient is maintained on; 1. Anastrozole. 2. Carvedilol. 3. Irbesartan. 4. Hydromorphone. 5. Omeprazole. PHYSICAL EXAMINATION: GENERAL: She is alert, oriented, in no apparent distress. VITAL SIGNS: Blood pressure is 156/84. HEAD AND NECK: No jugular venous distention. CHEST: Decreased air entry bilaterally. CARDIOVASCULAR: Regular with no rub detected. ABDOMEN: Soft, nontender. EXTREMITIES: Lower extremities, no edema. LABORATORY VALUES: Reviewed. Sodium is 146, potassium is 3.4, BUN is 56, creatinine is 1.8. IMPRESSION AND PLAN: 1. Chronic kidney disease with a baseline creatinine of around 1.4. 2. Respiratory arrest due to pulmonary hypertension. 3. Nonischemic cardiomyopathy with a pacemaker. 4. Atrial fibrillation. 5. Coronary artery disease. 6. Breast cancer. 7. Acute kidney injury. 8. The patient's blood pressure seems to be under well control on the current regimen. She is maintained on carvedilol and Norvasc and I would continue with the same for now. Continue to replace potassium. Unable to use angiotensin receptor madai given her severe pulmonary hypertension, ultimately will need to be on baseline diuresis. Unfortunately, her pleural effusion is not going to resolve with diuresis. 9. The patient's creatinine seems to have stabilized and seems to be trending down toward her baseline. <ELECTRONICALLY SIGNED> By: Wendy Khan MD 07/02/19 0859 0807 0840 Wendy Khan MD /nt
[2019-07-02] MEDS ORDERED: LASIX 40 MG TAB40 MG PO (09:22)
[2019-07-02 10:30] VITALS: BP 146/55
[2019-07-02 14:30] VITALS: BP 132/55
--- NOTE | 2019-07-02 16:23 | NUR ---
Spoke with patient. Discussed 5N in process of obtaing auth from [facility]. Patient has [facility] post acute list but will not review. Dr Reynoso and Dr Guillen can follow her on 5n she reports them saying. She reports its important for her to transfer for 5N for rehab. She does not want to review skilled list.
--- NOTE | 2019-07-02 17:46 | NUR ---
Report called to [place], receiving RN on . Pt alert and oriented. Up in chair throughout the day. Personal belongings packed by Angela MEDINA and sent with pt to [facility]. Telemetry dc'd. Volunteer transport to assist with transfer to [facility] 453.
[2019-07-02 19:35] VITALS: BP 138/65
--- NOTE | 2019-07-03 04:18 | NUR ---
ASSUMED CARE AROUND 1914. AXOX4. VSS. NO S/S ACUTE DISTRESS NOTED OR REPORTED AT THIS TIME. WILL CONT TO MONITOR FOR ANY CHANGES IN CONDITION.
[2019-07-03 08:05] VITALS: BP 142/68
--- NOTE | 2019-07-03 14:08 | NUR ---
ANSWER RECEIVED FROM [facility] REGARDING AUTHORIATION FOR ACUTE REHAB. AUTHORIZATION DENIED. FIELD RETURN REPAIRER STATING PATIENT GOALS COULD BE ACHEIVED AT A LOWER LEVEL OF CARE. PEER TO PEER AVAILABLE BY CALLING [id number] TO SET UP. SET UP MUST BE COMPLETED BY 3:OOPM 07/04/19. PENDING AUTHORIATION #[id number]
[2019-07-03 14:29] VITALS: BP 152/81
--- NOTE | 2019-07-03 16:42 | NUR ---
CM WAS NOTIFIED THAT PT'S INSURANCE DENIED AUTH FOR 5N. CM NOTIFIED PT AND FAMILY MEMBER THIS AFTERNOON AND ASKED THAT THEY REVIEW [facility] SNF LIST AND PROVIDE CM WITH POSSIBLE PREFFRENCES FOR SKILLED FACILITIES. PT INIDCATED SHE WANTED PEER TO PEER DONE BY ONCE OF THE PHYSICIANS. SHE STATED THAT DR. PACE AND CECILIA WANT HER ON 5N. CM NOTIFIED HOSPITALIST. PT INIDCATED THAT IF DENIAL IS UPHELD AFTER PEER TO PEER THAT SHE WOULD RATHER DC HOME WITH HH THEN GO TO A SKILLED FACILITY. CM TO FOLLOW INDICATED WITH DC PLANNING.
[2019-07-03 19:17] VITALS: BP 146/69
--- NOTE | 2019-07-03 19:48 | NUR ---
PT VSS. WAITING FOR PLACEMENT TO REHAB. WAS DENIES FOR 5N. OTHERWISE NO CHANGES TO PLAN OF CARE TODAY. WORKED WITH PT/OT. REMAINS ON BASELINE OXYGEN. TOLERATING DIET. ACCUCHVALDEMAR RAM. BMX2.
--- NOTE | 2019-07-04 04:56 | NUR ---
PT AOX4. PT NOTED TO HAVE HYPOXIC EPISODE EVIDENCE BY PT OBSERVED WITHOUT OXYGEN VIA NC, O2 SATURATION 83% ON RA, PT REPORTS FEELING RESTLESS AND FIGEDTY. APPLIED O2 VIA NC, O2 SATURATION NOTED TO BE AT 89% ON 2L. INCREASED O2 SUPPLY TO 3L, O2 SATURATION IMPROVED TO 93%. PT DENIES PAIN AND SHORTNESS OF BREATH. PT ENCOURAGED TO REPOSITION FREQUENTLY. PT AMBULATES WITH X1 ASSIST AND WALKER. PT CONTINENT OF BOWEL AND BLADDER. PT TOLERATING PO INTAKE WITHOUT ISSUE. ENCOURAGED PT TO CONTACT STAFF FOR ALL NEEDS. BED ALARM ON, CALL LIGHT WITHIN REACH, BED AT LOWEST POSITION. WILL CONTINUE TO MONITOR.
[2019-07-04 07:54] VITALS: BP 155/70
[2019-07-04] MEDS ORDERED: RAYOS5 MG PO (11:00)
--- NOTE | 2019-07-04 11:50 | NUR ---
Received awake on bed. Due medications given as prescribed, able to swallow meds with apple sauce. Vital signs stable. A+Ox4. On O2 at 3lpm via nasal cannula- pt's baseline; with hypoxic episode last night- Dr Duong informed. On blood sugar monitoring- taken and recorded accordingly; with sliding scale insulin prescribed. On Mechanically ground diet- tolerating well; no nausea, no vomiting and no abdominal pain noted; on aspiration protocol. With R limb alert- history of mastectomy. With SL at L FA; with R Chest port- accessed. A/W placement. Assisted in ADLs. Able to have a bowel movement today. AO1 using gaitbelt and walker, able to sit out on chair, falls bundle in place. With pacemaker- interrogated, no complaints of chest pain, heaviness or crushing sensation noted.
[2019-07-04 13:10] LABS: CALCIUM 10.4 mg/dL (8.5-10.1); CREATININE 1.6 mg/dL (0.6-1.0); POTASSIUM 4.7 mmol/L (3.5-5.1)
--- NOTE | 2019-07-04 14:46 | NUR ---
[facility] CALLED BACK THIS DATE STATING THAT DENIAL FOR ACUTE REHAB STAY UPHELD IN PEER TO PEER. IF DESIRED, EXPADITED APPEAL CAN BE INITIATED. TO INITIATE APPEAL CALL . FAX [phone]. PLAYBACK OPERATOR INFORMED. THANK YOU FOR THIS REFERAL.
--- NOTE | 2019-07-04 14:49 | NUR ---
Nutrition followup: pt continues to eat well 50-95% of meals on mechcanically altered ground diet. Noted prior diet liberalization and allowing thin liquids due to pt refusal/acceptance of risks. Hx stage 4 metastatic CA. Pt reports UBW around 135#. Most recent weight down to 127#. Pt does not appear this low. Has been on diuretic. Also ferrous sulfate. DNR. CM working on discharge plan to rehab facility. Continue as low risk.
[2019-07-04 15:25] VITALS: BP 137/60
--- NOTE | 2019-07-04 16:13 | NUR ---
CM NOTIFIED PT THAT PEER TO PEER WAS COMPLETED AND INDURANCE UPHELD DENIAL FOR 5N. SHE INIDCATED THAT SHE WAS AGREEABLE WITH [facility]FERRAL [facility] SHORT TERM SKILLED REHAB STAY. REFERRAL SENT. PHYSICIAN NOTIFIED. PT NEEDS TO BE ACCPETED AND INSURNACE NEEDS TO AUTH. PT WILL LIKELY BE HERE OVER THE WEEKEND. [facility]:
--- NOTE | 2019-07-04 16:33 | NUR ---
DISCHARGE PLANNING. POST ACTURE RECOMMENDED AT DISCHARGE. PATIENT IS READY FOR DISCHARGE. PATIENT REFERRAL FAXED TO [facility]. CALL PLACED TO GURWINDER TO NOTIFY. AWAITING RESPONSE.
[2019-07-04 19:30] VITALS: BP 121/62
[2019-07-05 06:20] LABS: CALCIUM 9.4 mg/dL (8.5-10.1); CREATININE 1.6 mg/dL (0.6-1.0); POTASSIUM 5.1 mmol/L (3.5-5.1)
--- NOTE | 2019-07-05 07:19 | NUR ---
Assumed pt care @1915. pt had a restful night with one episode where she gets up and calls out to staff. pt stated that she is not "crazy" but she realizes herself doing it. pt is a&ox4. ambulates with 1 assist with a walker. no s/s of distress. report off to day shift nurse
[2019-07-05 07:25] VITALS: BP 141/68
--- NOTE | 2019-07-05 10:06 | NUR ---
Received awake on bed. Due medications given as prescribed, able to swallow meds w/ apple sauce. On Mechanically altered ground diet- tolerating well; no nausea, no vomiting and no abdominal pain noted. Vital signs stable. A+Ox4. With pacemaker in place; no chest pain, no crushing or heaviness sensation noted from patient. With O2 at 3lpm via nasal cannula, to watch out for hypoxic episodes. On blood sugar monitoring- taken and recorded accordingly; with sliding scale insulin prescribed. On R limb alert- history of mastectomy. With SL at L FA, with R chest port- accessed. Able to sit out on chair. Encouraged patient to participate in therapies- pt feeling down since she got denied from [facility] due to insurance. Still a/w placement. Able to ambulate using walker, gaitbelt and oxygen, A01; encouraged and assisted to sit out on the chair during daytime.
[2019-07-05 14:57] VITALS: BP 110/44
[2019-07-05 16:27] VITALS: BP 126/64
--- NOTE | 2019-07-05 16:53 | NUR ---
PT IS AOX4, VSS, NO C/O PAIN. NURSE RECEIVED REPORT FROM [facility] ON 4[facility]. PT TRANSFERRED BY WHEELCHAIR. PT IS CURRENTLY UP IN CHAIR FOR DINNER. BS 170 WILL RECEIVE INSULIN PER S/S 3U. DAUGHTER AT BEDSIDE WITH PT, O2 3L PER NC IS CONTINUOUS. FALL PRECAUTIONS IN PLACE. CALL LIGHT/PERSONAL BELONGINGS IN REACH. WILL CONTINUE TO MONITOR.
[2019-07-05 19:11] VITALS: BP 121/56
--- NOTE | 2019-07-06 03:15 | NUR ---
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 THE NIGHT PROGRESSED PATIENT BECAME FORGETFUL AND UNABLE TO RETAIN SIMPLE INSTRUCTIONS WITH HER CALL LIGHT. PATIENT WILL CALL OUT IN A VERY LOW VOICE AND MOVE ABOUT IN HER BED WHEN SHE NEEDS SOMETHING. ABLE TO MEET HER NEEDS SHE IS VERY CLOSE TO THE NURSES STATION. PLEASANT AND UP WITH ONE ASSIST WITH WALKER. DENIES PAIN. BS MONITORED PER ORDER. 02NC 3L. UP TO BATHROOM SEVERAL TIMES DURING THE NIGHT. RESTING QUIETLY AT TIME OF NOTE. WILL MONITOR.
[2019-07-06 09:30] VITALS: BP 133/62
--- NOTE | 2019-07-06 13:45 | NUR ---
PT IS AOX4, VSS, NO C/O PAIN AT THIS TIME. PT UP AND OUT OF ROOM FOR MEALS. PT WENT TO DINING AREA WITH WALKER AND SB ASSIST X1. PT HAS 02 @ 3L PER NC. PT TOLERATING MEALS WELL, TAKES PILLS WHOLE WITH APPLESAUCE. FALL PRECAUTIONS IN PLACE, CALL LIGHT/PERSONAL ITEMS IN REACH. WILL CONTINUE TO MONITOR.
[2019-07-06 18:41] VITALS: BP 128/60
[2019-07-06 19:33] VITALS: BP 127/72
--- NOTE | 2019-07-07 05:46 | NUR ---
ASSUMED PT CARE APPROX 2200. PT'S VSS. PT IV IS IN LEFT FOREARM SALINE LOCKED. PT HAS NO COMPLAINTS OF PAIN. CALLS INTO THE LAST WHEN SHE NEEDS TO USE THE RR. PT DOES NOT USE THE CALL LIGHT APPROPRIATELY, EVEN AFTER BEING RE EDUCATED. PT IS A FALL RISK. PT IS RESTING IN HER ROOM. PT DOES REQUIRE EXTRA TIME. PT IS ON 3L NC. WILL CONTINUE TO MONITOR.
--- NOTE | 2019-07-07 06:36 | NUR ---
THIS NURSE AGREES WITH ASSESSMENT AND NOTE BY DIGITAL RESEARCH ANALYST ON THIS PATIENT.
[2019-07-07 08:43] VITALS: BP 117/66
--- NOTE | 2019-07-07 10:22 | NUR ---
ERICA reviewed chart and spoke with nursing and attending physician. Pt was transferred to [facility] and is progressing towards goals for discharge. Referral faxed to [facility] on Sunday. No beds available. ERICA met with pt at bedside to discuss alternate SNF options. In-network SNF list provided to pt. Pt to review list and discuss with her family. Pt considering [facility], [facility] and [facility]. Pt requesting time to discuss with family prior to sending out referrals. SW to follow up with pt this afternoon. ERICA is following to assist as needed with discharge planning.
--- NOTE | 2019-07-07 14:35 | NUR ---
DISCHARGE PLANNING. POST ACUTE RECOMMENDED AT DISCHARGE. PATIENT REFERRAL FAXED TO [facility], PER FAMILY REQUEST. CALL PLACED TO [facility] TO NOTIFY. [facility] HAVING BED AVAILABLE SUNDAY. UNIT SW NOTIFIED. FOLLOWING.
[2019-07-07 16:54] VITALS: BP 122/64
--- NOTE | 2019-07-07 18:54 | NUR ---
PT WAS ALERT AND ORIENTED THROUGH THE DAY. BECAME SOA AFTER WALKING SHORT DISTANTCES. O2@3L OER NC. IV INTACT IN L FA. DAUGHTER VISITED TODAY. AMBULATES WITH ASSIST X1 WITH WALKER/GAIT BELT.
[2019-07-07 19:23] VITALS: BP 102/52
--- NOTE | 2019-07-08 05:24 | NUR ---
Assumed pt care at 1900. Pt is A/OX4,VSS. Up with min assist of 1 RW/GB without problems. Denies pain on assessment. Fall safety reinforced to pt at HS and pt did verbalize understanding and has been calling for help before getting OOB.Pt resting at this time w/o distress,oxygen in place at 3L/NC. Will continue to monitor pt.
[2019-07-08 08:26] VITALS: BP 160/60
[2019-07-08 08:29] VITALS: BP 108/60
--- NOTE | 2019-07-08 10:08 | NUR ---
ERICA reviewed chart and spoke with nursing and attending physician. Pt is progressing towards goals for discharge. ERICA discussed with UR RN, who contacted pt's insurance to follow up on request for insurance auth. [facility] has not submitted for insurance authorization. [facility] to submit for insurance authorization today. ERICA contacted Fernanda in admissions at [facility]. ERICA is following to assist as needed with discharge planning.
[2019-07-08 10:49] VITALS: BP 108/60
--- NOTE | 2019-07-08 12:32 | NUR ---
Received awake on bed. Due medications given as prescribed, able to swallow meds w/apple sauce. A+Ox4. On O2 at 3lpm via nasal cannula, with SOA during ambulation. Vital signs stable. Continent with bowel and bladder, may have episodes of stress incontinence. With pacemaker in place- no complaints of chest pain, heaviness or crushing sensation. With L chest port in place, with SL at L FA. On R limb alert due to history of mastectomy. Assisted in ADLs. On mechanically altered ground diet- tolerating well; no nausea, no vomiting and no abdominal pain noted. Still a/w placement and insurance approval- AYANNA aware. Pt visited by relative today. Seen by physical therapist, able to walk around the avilez. Received call from [facility] at lunch time re: approval for placement- AYANNA Birch informed. Pt able to walk to dining molnia and have lunch with other patients. On blood sugar monitoring-taken and recorded accordingly; with sliding scale insulin- given as prescribed.
== END 2019-07-08 15:47 | DRG 871 ==
LOC: ER 09:01 → EROBS 11:34 → ICU 11:34 → 2N 06-26 15:18 → 4W 07-02 18:00 → 4N 07-05 16:09
PROVIDERS: Emergency Medicine; Hospitalist; Nurse Practitioner; Nurse Practitioner Adult Health; Pediatrics; ADMIT Hospitalist
PROC: 5A09357 Assistance with Respiratory Ventilation, Less than 24 Consecutive Hours, Continuous Positive Airway Pressure (ICD-10-PCS; principal; 2019-06-24)
PROC: 5A09357 Assistance with Respiratory Ventilation, Less than 24 Consecutive Hours, Continuous Positive Airway Pressure (ICD-10-PCS; 2019-06-25)
DX: A41.9 Sepsis, unspecified organism (principal); I46.9 Cardiac arrest, cause unspecified; J96.21 Acute and chronic respiratory failure with hypoxia; J18.9 Pneumonia, unspecified organism; J96.22 Acute and chronic respiratory failure with hypercapnia; I50.23 Acute on chronic systolic (congestive) heart failure; N17.9 Acute kidney failure, unspecified; J44.0 Chronic obstructive pulmonary disease with (acute) lower respiratory infection; I42.8 Other cardiomyopathies; I48.21 Permanent atrial fibrillation; J91.8 Pleural effusion in other conditions classified elsewhere; I13.0 Hypertensive heart and chronic kidney disease with heart failure and stage 1 through stage 4 chronic kidney disease, or unspecified chronic kidney disease; I48.20 Chronic atrial fibrillation, unspecified; J44.9 Chronic obstructive pulmonary disease, unspecified; I25.10 Atherosclerotic heart disease of native coronary artery without angina pectoris; E78.5 Hyperlipidemia, unspecified; Z66 Do not resuscitate; K21.9 Gastro-esophageal reflux disease without esophagitis; C50.919 Malignant neoplasm of unspecified site of unspecified female breast; E11.22 Type 2 diabetes mellitus with diabetic chronic kidney disease; I27.20 Pulmonary hypertension, unspecified; M54.9 Dorsalgia, unspecified; G89.29 Other chronic pain; N18.3 Chronic kidney disease, stage 3 (moderate); I27.21 Secondary pulmonary arterial hypertension; Z91.81 History of falling; Z99.81 Dependence on supplemental oxygen; Z95.810 Presence of automatic (implantable) cardiac defibrillator; Z85.118 Personal history of other malignant neoplasm of bronchus and lung; Z88.5 Allergy status to narcotic agent; Z88.2 Allergy status to sulfonamides; Z79.82 Long term (current) use of aspirin; Z79.891 Long term (current) use of opiate analgesic; Z79.899 Other long term (current) drug therapy; Z79.01 Long term (current) use of anticoagulants; Z98.42 Cataract extraction status, left eye; Z98.49 Cataract extraction status, unspecified eye; Z98.41 Cataract extraction status, right eye; Z90.710 Acquired absence of both cervix and uterus; Z90.11 Acquired absence of right breast and nipple
CPT/HCPCS: 10047; 10078; 10081; 10790